=== PATIENT | male | born 1950 ===

== ENCOUNTER 2024-03-06 11:26 | Outpatient (AMB) | payer MEDICARE, SELFPAY ==
--- NOTE | 2024-03-06 11:27 | A.OFFVIS_ITS ---
Vital Signs 03/06/24 11:33 Height 6 ft 4 in Weight 270 lb BMI 32.9 BP 147/70 H Blood Pressure Location Rt brachial Position Sitting Pulse 64 Pulse Source Pulse Oximeter Pulse Oximetry (%) 97 Oxygen Delivery Method Room Air Intake Visit Reasons: Chronic low back pain Intake Note: Pain today 8 Enrollment Eligibility Representative Required: No Accompanied by: Spouse Allergies Sulfa (Sulfonamide Antibiotics) Allergy (Unknown, Verified 03/06/24 11:33) Anaphylaxis HPI HPI Chronic low back pain: Details: Is a pleasant 73-year-old male with prior history of chronic low back and neck pain, diabetes (A1C=7.0), kidney stones and recurrent UTIs, DVT (on Xarelto), former smoker, gout, morbid obesity, thrombocytopenia, bilateral knee replacements, presents today for initial evaluation of lower back pain. Denies any recent or past trauma, injury, or falls. Patient denies previous spine surgery or injections. He completed physical therapy at [facility] about 4 years ago without any improvement. 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 Back pain is localized to the lower spine and worse with movements and extension. Patient reports his pain is most severe mid morning and afternoon which he rates 8/10 and least severe at nighttime which he rates 3/10. Pain affects his daily activities and functioning, mobility, ROM and social interactions. Patient has been using Tylenol Arthritis and Nabumetome with minimal benefit. Denies any fever or chills, abdominal or groin pain, weakness, bladder or bowel dysfunction or saddle anesthesia. Oswestry Low Back Disability Score=23 (moderate disability) Location: Lower back pain Duration: Chronic pain> 10 years Characteristics of symptom or complaint: Aching, stabbing, sharp, pinching, cramping, dull, tiring, sore Aggravating or associated factors: Movements, lifting, prolonged standing and walking, exertion, cold weather Relieving factors: Rest, sitting, heating pad, Tylenol Arthritis Treatment: PT at [facility], uses cane with walking [facility] Medical History (Updated 03/06/24 @ 21:19 by LOGAN Feliciano) Detached retina, left DDD (degenerative disc disease), thoracolumbar Thyroid nodule Recurrent thrombus Recurrent idiopathic thrombophlebitis Pancytopenia Panacinar emphysema Nephrolithiasis Morbid obesity Hypertension Hyperlipidemia Hepatic steatosis Gout DVT (deep venous thrombosis) Diabetes mellitus Cataract Abdominal aortic ectasia Surgical History (Updated 03/06/24 @ 21:19 by LOGAN Feliciano) H/O cornea transplant (~05/09/20) History of carpal tunnel surgery of left wrist (~07/2022) History of left knee surgery (~07/2012) Hx of right knee surgery (~04/2012) Social History Alcohol intake: current Alcohol intake frequency: a few times a month Patient Tobacco Use Status: Former Tobacco user Review of Systems Const All systems reviewed & are unremarkable except as noted in HPI and below Physical Exam Vital Signs: Last Vital Signs Pulse 64 03/06/24 11:33 BP 147/70 H 03/06/24 11:33 Pulse Ox 97 03/06/24 11:33 Oxygen Delivery Method Room Air 03/06/24 11:33 BMI result Body Mass Index 32.9 General: Appears afebrile. Alert and oriented. Mood and affect appropriate. Follows and participates in conversation appropriately. Respiratory effort is unlabored. No cough. Able to transition from sit to stand unassisted. Uses cane with ambulation. Ambulates with bilaterally normal heel strike and toe off. General: Yes no CVA tenderness Back/Spine/Pelvis Other: Limited lumbar ROM due to pain. Painful facet loading bilaterally. Pain in all ranges of motion, lumbar extension and facet loading bilaterally reproduces moderate pain. Lumbar flexion and bending reproduces minimal pain. No midline tenderness to palpation in the thoracic or lumbar spine. Back: no CVA tenderness Cervical Spine: cervical ROM normal, loss of normal cervical lordosis, cervical muscular tenderness, pain with cervical ROM and No Cervical spine tenderness Thoracic/Lumbar Spine: thoracic and lumbar spine normal to inspection, No Thoracic/lumbar spine scar(s), Lasegue's sign negative, straight leg raise negative bilaterally, pain with thoraco-lumbar ROM, paraspinal muscle tenderness, thoraco-lumbar ROM limited, No thoracic spinal tenderness and lumbar spinal tenderness (L3-S1) Pelvis: no buttock tenderness Sacroiliac joints: bilaterally nontender Results Reviewed Results Reviewed: CT ABDOMEN AND PELVIS WITHOUT AND WITH CONTRAST 12/31/22 OSSEOUS STRUCTURES: There is multi-level marked thoracolumbar degenerative disc disease and spondylosis. No acute or aggressive osseous abnormality is seen. Assessment & Plan Assessment & Plan (1) Lumbosacral spondylosis: Code(s): M47.817 - Spondylosis without myelopathy or radiculopathy, lumbosacral region Category: Medical (2) Chronic low back pain: Code(s): M54.50 - Low back pain, unspecified; G89.29 - Other chronic pain Category: Medical (3) DDD (degenerative disc disease), thoracolumbar: Code(s): M51.35 - Other intervertebral disc degeneration, thoracolumbar region Category: Medical Plan Discussed treatment options for patient's axial low back. Informational pamphlets provided to patient and his . We will plan for diagnostic bilateral L3-L4 DR L5 medial branch blocks with local and fluoroscopy. If he has significant relief from the diagnostic blocks for his axial low back pain, will consider either therapeutic injections, Sprint PNS or RFA depending on his preference. All questions and concerns have been answered and patient agreed with the plan. Follow up after injections and sooner as needed. Anticoagulation: Patient on anticoagulation (Xarelto) and instructions given on when to pause with prescribing physician permission. Justification for interventional therapy: ? Patient with average pain > 6/10 ? Patient has exhausted conservative therapy, including PT, NSAIDs, Tylenol Arthritis The risks, consequences, alternatives, and benefits of various treatment options were discussed with the patient in great detail, including conservative management, injections and procedures. Coding Level of Care Code New Pt Level 4 (99166) Complex EM visit Add On G2211 Diagnoses Lumbosacral spondylosis M47.817 Chronic low back pain M54.50; G89.29 DDD (degenerative disc disease), thoracolumbar M51.35
[2024-03-06 11:33] VITALS: BP 147/70; PULSE 64; O2SAT 97; BMI 32.9
== END 2024-03-06 12:15 | disposition home or self-care (01) ==
PROVIDERS: PCP Internal Medicine; Visit Provider Nurse Practitioner Family
DX: M47.817 Spondylosis without myelopathy or radiculopathy, lumbosacral region (principal); M54.50 Low back pain, unspecified; G89.29 Other chronic pain; M51.35 Other intervertebral disc degeneration, thoracolumbar region
CPT/HCPCS: 99204; G2211

== ENCOUNTER → 2024-03-06 11:26 | Outpatient (BNVA) | payer MEDICARE, SELFPAY | PROVIDERS: PCP Internal Medicine; Visit Provider Nurse Practitioner Family | DX: M54.50 Low back pain, unspecified (principal); G89.29 Other chronic pain; M51.35 Other intervertebral disc degeneration, thoracolumbar region; M47.817 Spondylosis without myelopathy or radiculopathy, lumbosacral region | CPT/HCPCS: 99202 ==

== ENCOUNTER 2024-07-04 06:20 | Outpatient (REF) | payer MEDICARE, SELFPAY ==
--- NOTE | ~2024-07-04 | FL_ITS ---
EXAMINATION: FL GUIDANCE ONLY HISTORY: M47.817 - Spondylosis without myelopathy or radiculopathy, lumbosacral r... COMPARISON: None available. TECHNIQUE: Fluoroscopy time: 0.7 minutes. Cumulative Dose: 16.6 mGy. DAP: 0.287 mGym2 Images: 12. FINDINGS: Images demonstrate needles and contrast material in the regions of the bilateral L3-4, L4-5 and L5-S1 facet joints. FL/FL guidance in treatment room IMPRESSION: Fluoroscopy during procedure. Please see procedure report for additional information. Electronically signed by: Nolan Scott MD 07/04/2024 03:59 PM TAMMIE
--- OUTSIDE RECORDS SUMMARY | 2024-07-04 06:25 | XMS_ITS | Encounter Summary ---
Author Organization [facility] Address [address] [place] [id number] Care Team Providers Care Parasitologist Name Role Phone Rehan Marroquin MD Primary Care Provider [phone] Reason for Visit * Reason Comments Follow-up Encounter Details Date Type Department Care Team (Late st Contact Info) Description 06/22/2024 10:00 AM EST Office Visit [facility] Hematology Oncology [address] [place] [address] Alon Feliz MD [address] [place] [address] Pancytopenia (CMS/HCC) (Primary Dx) Social History Tobacco Use Types Packs/Day Years Used Date Smoking Tobacco: Former Cigarettes 3 29 0 05/31/1969 - 05/31/1998 Smokeless Tobacco: Never Alcohol Use Standard Drinks/Week Comments Yes 12 (1 standard drink = 0.6 oz pu re alcohol) Sex and Gender Information Value Date Recorded Sex Assigned at Not on file Gender Identity Not on file Sexual Orientation Not on file Job Start Date Occupation Industry Not on file Not on file Not on file documented as of this encounter Last Filed Vital Signs Vital Sign Reading Time Taken Comments Blood Pressure 173/74 06/22/2024 10:19 AM EST Pulse 77 06/22/2024 10:19 AM EST Temperature 36.6 ??C (97.9 ??F) 06/22/2024 10:[address] Respiratory Rate - - Oxygen Saturation 98% 06/22/2024 10:19 AM EST Inhaled Oxygen Concentration - - Weight 126 kg (277 lb) 06/22/2024 10:19 AM EST Height - - Body Mass Index 33.72 12/21/2023 10:08 AM EDT documented in this encounter Progress Notes * Alon Feliz MD - 06/22/2024 10:00 AM EST Diagnosis/treatment: #1 Pancytopenia. #2 Recurrent DVT. Interval history: The patient is a 73-year-old gentleman who is followed in our clinic for a chronic pancytopenia. A CBC on 12/11/2017 showed a WBC of 4.0, hemoglobin 14.2 with MCV 93, and platelet count 110,000. Additional laboratory data is as below: LABS: A CBC on 12/05/2021 showed WBC of 4.2 with ANC 2.2 and ALC 1.2, hemoglobin 13.0 with MCV 94, and platelet count 122,000. A creatinine was 1.1. LFTs were normal. A CBC on 12/03/2022 showed WBC of 3.8 with ANC 1.9 and ALC 1.2, hemoglobin 12.3 with MCV 96, and platelet count 112,000. A CBC on 06/06/2023 showed WBC of 3.9 with ANC 2.0 and ALC 1.2, hemoglobin 12.5 with MCV 95, and platelet count 123,000. A CBC on 12/17/2023 showed WBC of 3.5 with ANC 1.8 and ALC 1.1, hemoglobin 12.0 with MCV 96, and platelet count 113,000. A CBC on 06/22/2024 showed WBC of 4.0 with ANC 2.3 and ALC 1.1, hemoglobin 11.5 with MCV 97, and platelet count 121,000. The patient presented in early 04/2020 with left leg pain and edema. A left lower extremity Dopplerultrasound 05/03/2020 showed a DVT in the superficial femoral, popliteal, and peroneal veins. He denied any antecedent trauma, surgery, or periods of immobilization. He was started on Xarelto and reported resolution of symptoms. However, he reports that he received only a starter pack and following completion of the starter pack he remained off anticoagulation subsequently. He presented in mid-05/2021 with left leg pain and edema. Left lower extremity Doppler ultrasound on06/12/2021 showed a DVT in the left peroneal veins. He again denied any antecedent provoking factors. He was restarted on Xarelto. He reported resolution of symptoms. He remained on Xarelto 20 mg daily. A cardiolipin antibody panel on 07/10/2021 was negative. A beta-2 glycoprotein antibody panel was negative. An A/P CT with IV and without oral contrast on 11/13/2020 showed a 0.7 cm left lower lobe nodule andwas otherwise unremarkable. An A/P CT with IV and oral contrast on 12/11/2021 showed a 0.8 cm left lower lobe nodule and a 0.6 cm right middle lobe subpleural nodule and was otherwise unremarkable. A chest CT without contrast on 12/03/2022 showed stable pulmonary nodules. He developed intermittent gross hematuria in the summer 2022. A cystoscopy was unremarkable. He reported persistent intermittent gross hematuria. His PCP lowered the Xarelto to 20 mg every other day and the hematuria resolved. He denies leg pain or edema. He denies cough, hemoptysis, or dyspnea on exertion. He denies headaches or visual changes. He denies nausea or abdominal pain. He denies unusual bone pain. He reports stable appetite and weight. He denies any family history of thrombosis in his first-degree relatives. He is a former smoker who started smoking at age 19 and smoked up to 3 packs a day and quit at age 38. Review of systems: The remainder of a 10 point review of systems was unremarkable. Physical examination: HEENT: Sclerae anicteric, normal oropharyngeal membrane. Neck: No lymphadenopathy. Lungs: Clear to auscultation. Heart: No murmurs. Abdomen: Soft, nontender, no organomegaly or masses. Extremities: No edema. Skin: No rash. Neurologic: Normal gait. Assessment/plan: The patient is a 73-year-old gentleman who is followed in our clinic for a chronic mild pancytopenia and a history of recurrent left lower extremity DVT. A/P CTs in 11/17/2020 and 12/17/2021 showed no splenomegaly and no evidence of intra-abdominal malignancy. An early myelodysplastic syndrome is in the differential diagnosis. Because of the cytopenias are mild and stable and no therapeutic intervention is required, we will defer a bone marrow aspirate andbiopsy until there are progressive cytopenias. Small subcentimeter pulmonary nodules were seen on the 11/17/2020 and 12/17/[address] in early set 11/2022 showed stable findings. He completed [address] surveillance of the pulmonary nodules. He is a former smoker quit over 30 years ago. He is not eligible for low-dose chest CT screening. The patient has a history of recurrent unprovoked DVTs. A limited thrombophilia laboratory evaluation with a cardiolipin antibody panel and a beta-2 glycoprotein antibody panel were negative. There is no family history of thrombosis. Further thrombophilia laboratory evaluation is not warranted. I re commended lifetime anticoagulation. He developed intermittent gross hematuria in the summer 2022. A cystoscopy was unremarkable. He is followed by Dr. Escoto. He reported persistent intermittent gross hematuria. His PCP lowered the Xarelto to 20 mg every other day and the hematuria resolved. Visit summary: The patient is a 73-year-old gentleman returns for routine follow-up for his history of chronic mild pancytopenia and history of recurrent left lower extremity DVT. A CBC today shows stable cytopenias. He had gross hematuria on anticoagulation. His PCP lowered the Xarelto to 20 mg every other day and the hematuria resolved during the last interval. A history and physical today revealed no new findings. documented in this encounter Plan of Treatment Upcoming Encounters Date Type Department Care Team (Late st Contact Info) Description 12/20/2024 10:00 AM EDT Office Visit [facility] Hematology Oncology [address] [place] [phone] Alon Feliz MD [address] [place] [phone] Scheduled Orders Name Type Priority Associated Diagnoses Orde r Schedule CBC and differential Lab Routine Pancytopenia (CMS/HCC) Every 12 weeks for 4 Occurrences starting 06/22/2024 until 06/22/2025, 1 completed documented as of this encounter Visit Diagnoses Diagnosis Pancytopenia (CMS/HCC)- Primary documented in this encounter Care Teams Parasitologist Relationship Specialty Start Date End Date Rehan Marroquin MD [address] PCP - General Substance Addiction Coordinator 03/04/20 documented as of this encounter
--- OUTSIDE RECORDS SUMMARY | 2024-07-04 06:25 | XMS_ITS | Clinical Summary ---
Author Organization [facility] Address [address] [place] [address] Phone Care Team Providers Care Waiter/Waitress Counter Name Role Phone Rehan Marroquin MD Primary Care Provider [phone] Allergies Active Allergy Reactions Criticality Noted Date Comments Sulfa (Sulfonamide Antibiotics) 03/01 Medications Medication Sig Dispensed Refills Start Date End Date Status carboxymethylcellulo se-glycern 0.5-0.9 % drops Administer into affected eye(s). Active atorvastatin (LIPITOR) 40 mg tablet Take 1 tablet (40 mg total) by mouth 1 (one) time each day. Active brimonidine (ALPHAGAN P) 0.15 % ophthalmic solution Administer 2 drops into both eyes 3 (three) times a day. Active cholecalciferol (VITAMIN D-3) 50 mcg (2,000 unit) tablet Take 1 tablet (2,000 Units total) by mouth 1 (one) time each day. Active FLUOROMETHOLONE OPHT Administer 2 drops into affected eye(s) 1 (one) time each day. Active glipiZIDE (GLUCOTROL) 10 mg tablet Take 1 tablet (10 mg total) by mouth 2 (two) times a day before meals. before breakfast and dinner. Active bqstekwh-dvt-qnorj-h yaluron ac 069-90-500-1 mg tablet Take by mouth 2 (two) times a day. Active indapamide (LOZOL) 2.5 mg tablet Take 1 tablet (2.5 mg total) by mouth 1 (one) time each day in the morning. Active lisinopriL (PRINIVIL,ZESTRIL) 20 mg tablet Take 1 tablet (20 mg total) by mouth 1 (one) time each day. Active loteprednol (ALREX) 0.2 % ophthalmic suspension 1 drop 4 (four) times a day. Active metFORMIN (GLUCOPHAGE) 500 mg tablet Take 1 tablet (500 mg total) by mouth 2 (two) times a day with meals. Active nabumetone (RELAFEN) 750 mg tablet Take 1 tablet (750 mg total) by mouth 2 (two) times a day. Active olopatadine 0.7 % drops Administer 1 drop into affected eye(s) 1 (one) time each day. Active omega-3 (FISH OIL) 360-1,200 mg capsule Take 1 capsule (1,200 mg total) by mouth every other day. Active potassium gluconate 550 mg (90 mg) tablet Take 550 mg by mouth 1 (one) time each day. Active rivaroxaban (XARELTO) 20 mg tablet Take 1 tablet (20 mg total) by mouth. Active tamsulosin (FLOMAX) 0.4 mg 24 hr capsule Take 1 capsule (0.4 mg total) by mouth 1 (one) time each day. Active timolol (TIMOPTIC) 0.5 % ophthalmic solution 1 drop 2 (two) times a day. Active Active Problems Problem Noted Date Diagnosed Date Acute deep vein thrombosis ( DVT) of tibial vein of left lower extremity 08/23/2021 Nephrolithiasis 01/06/2021 Diabetes mellitus 03/29/2020 Hepatic steatosis 03/29/2020 Hypertension 03/29/2020 Pancytopenia 03/29/2020 Thyroid nodule 03/29/2020 Encounters Date Type Department Care Team Description 06/22/2024 10:00 AM EST Office Visit [facility] Hematology Oncology [address] [place] [address] Alon Feliz MD Pancytopenia (CMS/HCC) (Primary Dx) from Last 3 Months Surgical History Surgery Date Site/Laterality Comments COLONOSCOPY PROCEDURE:COLONOSCOPY CATARACT EXTRACTION, BILATERAL PROCEDURE:CATARACT EXTRACTION, BILATERAL TOTAL KNEE ARTHROPLASTY PROCEDURE:REPLACEMENT TOTAL KNEE BILATERAL OTHER SURGICAL HISTORY PROCEDURE:Retinopexy Medical History Medical History Date Comments Thrombocytopenia (CMS/HCC) DX:Th rombocytopenia (HCC) HLD (hyperlipidemia) DX:HLD (hyp erlipidemia) Hypertension DX:Hypertension Diabetes mellitus (CMS/HCC) DX:D iabetes mellitus (HCC) Abdominal aortic ectasia (CMS/HCC) DX:Abdominal aortic ectasia (HCC) Hepatic steatosis DX:Hepatic raquel atosis Nephrolithiasis DX:Nephrolithias is Thyroid nodule DX:Thyroid nodul e Deep vein thrombosis (DVT) o f proximal vein of left lower extremity (CMS/HCC) 05/03/2020 DX:Deep vein th rombosis (DVT) of proximal vein of left lower extremity (HCC);COMMENT:Apparently unprovoked. Follow-up venous ultrasound 08/07/2020 shows no thrombosis. Acute deep vein thrombosis ( DVT) of tibial vein of left lower extremity (CMS/HCC) 06/12/2021 DX:Acute deep vein thrombosi s (DVT) of tibial vein of left lower extremity (HCC);COMMENT:Apparently unprovoked Family History Medical History Relation Name Comments Stroke Father Dementia Mother Leukemia Neg Hx Relation Name Status Comments Father (Age 74) Mother (Age 94) Social History Tobacco Use Types Packs/Day Years [...] file Not on file Not on file Obstetrics History Last Filed Vital Signs Vital Sign Reading Time Taken Comments Blood Pressure 173/74 06/22/2024 10:19 AM EST Pulse 77 06/22/2024 10:19 AM EST Temperature 36.6 ??C (97.9 ??F) 06/22/2024 10:[address] Respiratory Rate - - Oxygen Saturation 98% 06/22/2024 10:19 AM EST Inhaled Oxygen Concentration - - Weight 126 kg (277 lb) 06/22/2024 10:19 AM EST Height 193 cm (6' 4 ) 12/21/2023 10:08 AM EDT Body Mass Index 33.72 12/21/2023 10:08 AM EDT Plan of Treatment Upcoming Encounters Date Type Department Care Team (Late st Contact Info) Description 12/20/2024 10:00 AM EDT Office Visit [facility] Hematology Oncology [address] [place] [address] Alon Feliz MD [address] [place] [address] Health Maintenance Due Date Last Done Comments Diabetes: Annual Foot Exam 08/01/1961 Diabetes: Annual Retina Eye Exam 08/01/1961 DTaP,Tdap,and Td Vaccines (1 - Tdap) 08/01/1970 Zoster Vaccines (1 of 2) 08/01/2001 RSV Immunization Patients 60+ Years Old (1 - Risk 60-74 years 1-dose series) 2011 Pneumococcal Vaccine: 65+ Years (2 of 2 - PCV) 12/09/2017 12/09/2016 Abdominal Aortic Aneurysm (AAA) Screen 05/08/2022 Cholesterol Screening (Lipid Panel) 05/08/2022 Colorectal Cancer Screening: Colonoscopy 05/08/2022 Depression Screening 05/08/2022 Falls Risk Assessment 05/08/2022 Hepatitis C Screening 05/08/2022 Social Influencers of Health Screening 05/08/2022 Diabetes: Annual Urine Albumin-Creatinine Ratio (uACR) 05/30/2022 Diabetes: Blood Sugar Control Test (HGBA1C) 05/30/2022 COVID-19 Vaccine ( season) 2024 Influenza Vaccine (#1) 2024 , 03/18/2022, 02/27/2021, Additional history exists Medicare Annual Wellness Visit 02/18/2024 02/17/2023 Diabetes: Annual GFR (Glomerular Filtration Rate) 09/02/2024 09/03/2023, 09/03/2023 Hypertension/CHF/CAD Annual BMP Blood Test 09/02/2024 09/03/2023, 09/03/2023 HIB Vaccines Aged Out No longer eligi ble based on patient's age to complete this topic HPV Vaccines Aged Out No longer eligi ble based on patient's age to complete this topic Hepatitis A Vaccines Aged Out No long er eligible based on patient's age to complete this topic Hepatitis B Vaccines Aged Out No long er eligible based on patient's age to complete this topic IPV Vaccines Aged Out No longer eligi ble based on patient's age to complete this topic MMR Vaccines Aged Out No longer eligi ble based on patient's age to complete this topic Meningococcal ACWY Vaccine Aged Out N o longer eligible based on patient's age to complete this topic RSV Immunization Patients Under 20 months Aged Out No longer eligible based on patient's age to complete this topic Varicella Vaccines Aged Out No longer eligible based on patient's age to complete this topic Procedures Procedure Name Priority Date/Time Associated Diagnosis Comments CBC WITH AUTO DIFFERENTIAL Routine 06/22/2024 10:36 AM EST Pancytopenia (CMS/HCC) CBC AND DIFFERENTIAL Routine 06/22/2024 10:36 AM EST Pancytopenia (CMS/HCC) ANNUAL BMP BLOOD TEST Routine 09/03/2023 from Last 3 Months or Most Recently Relevant to Health Maintenance Results * (ABNORMAL) CBC auto differential (06/22/2024 10:36 AM EST) WBC 4.0(L) 4.8 - 10.8 K/mcL LAB HEMETOLOGY METHOD 06/22/2024 12:12 PM [facility] RBC 3.50(L) 4.50 - 5.50 M/mcL LAB HEMETOLOGY METHOD 06/22/2024 12:12 PM [facility] Hemoglobin 11.5(L) 13.5 - 17.5 g/dL LAB HEMETOLOGY METHOD 06/22/2024 12:12 PM [facility] Hematocrit 33.4(L) 42.0 - 54.0 % LAB HEMETOLOGY METHOD 06/22/2024 12:12 PM [facility] MCV 96.8 79.0 - 98.0 FL LAB HEMETOLOGY METHOD 06/22/2024 12:12 PM [facility] MCH 33.3(H) 27.0 - 32.0 pcg LAB HEMETOLOGY METHOD 06/22/2024 12:12 PM [facility] MCHC 34.4 32.0 - 37.0 g/dL LAB HEMETOLOGY METHOD 06/22/2024 12:12 PM [facility] RDW 12.9 11.0 - 15.0 % LAB HEMETOLOGY METHOD 06/22/2024 12:12 PM [facility] Platelets 121(L) 130 - 400 K/mcL LAB HEMETOLOGY METHOD 06/22/2024 12:12 PM [facility] MPV 11.1(H) 7.0 - 11.0 FL LAB HEMETOLOGY METHOD 06/22/2024 12:12 PM [facility] NRBC 0.0 <1.0 % LAB HEMETOLOGY METHOD 06/22/2024 12:12 PM [facility] NRBC Absolute 0.00 <0.10 K/mcL LAB HEMETOLOGY METHOD 06/22/2024 12:12 PM [facility] Neutrophils Relative 56.9 % LAB HEMETOLOGY METHOD 06/22/2024 12:12 PM [facility] Lymphocytes Relative 26.6 % LAB HEMETOLOGY METHOD 06/22/2024 12:12 PM [facility] Monocytes Relative 10.6 % LAB HEMETOLOGY METHOD 06/22/2024 12:12 PM [facility] Eosinophils Relative 4.1 % LAB HEMETOLOGY METHOD 06/22/2024 12:12 PM [facility] Basophils Relative 1.5 % LAB HEMETOLOGY METHOD 06/22/2024 12:12 PM [facility] Immature Granulocytes Relative 0.3 % LAB HEMETOLOGY METHOD 06/22/2024 12:12 PM [facility] Neutrophils Absolute 2.25 1.50 - 7.00 K/mcL LAB HEMETOLOGY METHOD 06/22/2024 12:12 PM [facility] Lymphocytes Absolute 1.05 1.00 - 5.00 K/mcL LAB HEMETOLOGY METHOD 06/22/2024 12:12 PM [facility] Monocytes Absolute 0.42 0.20 - 1.00 K/mcL LAB HEMETOLOGY METHOD 06/22/2024 12:12 PM EST [facility] Eosinophils Absolute 0.16 0.00 - 0.50 K/[facility] LAB HEMETOLOGY METHOD 06/22/2024 12:12 PM EST [facility] Basophils Absolute 0.06 0.00 - 0.20 K/mcL LAB HEMETOLOGY METHOD 06/22/2024 12:12 PM EST [facility] Immature Granulocytes Absolute 0.01 0.00 - 0.03 K/[facility] LAB HEMETOLOGY METHOD 06/22/2024 12:12 PM EST [facility] Blood Venous blood specimen / Unknown Venipuncture / Unknown 06/22/2024 10:36 AM EST 06/22/2024 11:38 AM EST Alon Feliz MD LAB BLOOD ORDERABLE S [facility] [address] [place] [address], * Annual BMP Blood Test (09/03/2023) Annual BMP Blood Test abstracted Historical Provider MD VIVIENNE Ocampo from Last 3 Months or Most Recently Relevant to Health Maintenance Care Teams Waiter/Waitress Counter Relationship Specialty Start Date End Date Rehan Marroquin MD [facility] [address] PCP - General Road Repairer 03/04/20
--- OUTSIDE RECORDS SUMMARY | 2024-07-04 06:25 | XMS_ITS | Clinical Summary ---
Author Organization [facility] Address [address] [place] [address] Care Team Providers Care Interior Block Wirer Name Role Phone Rehan Marroquin MD Primary Care Provider [phone] Allergies Active Allergy Reactions Criticality Noted Date Comments Sulfa Antibiotics 03/28/2020 Medications Medication Sig Dispensed Refills Start Date End Date Status glipiZIDE (GLUCOTROL) tablet 10 mg Take 1 tablet (10 mg total) by mouth 2 (two) times a day before breakfast and dinner. 0 Active indapamide (LOZOL) 2.5 MG tablet Take 1 tablet (2.5 mg total) by mouth every morning. 0 Active atorvastatin (LIPITOR) tablet 40 mg Take 1 tablet (40 mg total) by mouth daily. 0 Active lisinopril (PRINIVIL,ZESTRIL) tablet 20 mg Take 1 tablet (20 mg total) by mouth daily. 0 Active metFORMIN (GLUCOPHAGE) tablet 500 mg Take 1 tablet (500 mg total) by mouth 2 (two) times a day with meals. 0 Active nabumetone (RELAFEN) 750 MG tablet Take 1 tablet (750 mg total) by mouth 2 (two) times a day. 0 Active Potassium Gluconate 550 (90 K) MG TABS Take 550 mg by mouth daily. 0 Active Filley-3 Fatty Acids (OMEGA-3 FISH OIL) 1200 MG CAPS Take 1,200 mg by mouth every other day. 0 Active Cholecalciferol (VITAMIN D) 50 MCG (2000 UT) tablet Take 2,000 Units by mouth daily. 0 Active Mxikmm-Vfwdpuwnj-Rbtw uron-MSM (GLUCOSAMINE CHONDROITIN JOINT) TABS Take by mouth 2 (two) times a day. 0 Active FLUOROMETHOLONE OP Apply 2 drops to eye daily. 0 Active brimonidine (ALPHAGAN) 0.15 % ophthalmic solution Place 2 drops into both eyes 3 (three) times a day. 0 Active Olopatadine HCl 0.7 % SOLN Apply 1 drop to eye daily. 0 Active tamsulosin (FLOMAX) 0.4 MG CAPS Take 1 capsule (0.4 mg total) by mouth daily. 0 Active rivaroxaban (XARELTO) 20 MG TABS tablet Take 1 tablet (20 mg total) by mouth. 0 Active timolol (TIMOPTIC) 0.5 % ophthalmic solution 1 drop 2 (two) times a day. 0 Active Carboxymethylcellul-G lycerin (REFRESH RELIEVA OP) Apply to eye. 0 Active loteprednol (LOTEMAX) 0.2 % SUSP 1 drop 4 (four) times a day. 0 Active rivaroxaban (XARELTO) 20 MG TABS tablet Take by mouth. 0 Act leela Active Problems Problem Noted Date Diagnosed Date Acute deep vein thrombosis ( DVT) of tibial vein of left lower extremity 08/23/2021 Nephrolithiasis 01/06/2021 Diabetes mellitus 03/29/2020 Thyroid nodule 03/29/2020 Hypertension 03/29/2020 Hepatic steatosis 03/29/2020 Pancytopenia 03/29/2020 Family History Medical History Relation Name Comments Stroke Father Dementia Mother Leukemia Neg Hx Relation Name Status Comments Father (Age 74) Mother (Age 94) Social History Tobacco Use Types Packs/Day Years Used Date Smoking Tobacco: Former Cigarettes 3 29 1 970 - 1998 Smokeless Tobacco: Never Alcohol Use Standard Drinks/Week Comments Yes 12 (1 standard drink = 0.6 oz pu re alcohol) much more in years past Sex and Gender Information Value Date Recorded Sex Assigned at Not on file Gender Identity Not on file Sexual Orientation Not on file Job Start Date Occupation Industry Not on file Not on file Not on file Last Filed Vital Signs Vital Sign Reading Time Taken Comments Blood Pressure 156/69 12/21/2023 10:08 AM EDT Pulse 67 12/21/2023 10:08 AM EDT Temperature 36.8 ??C (98.2 ??F) 12/21/2023 10:08 AM E DT Respiratory Rate - - Oxygen Saturation 98% 12/21/2023 10:08 AM EDT Inhaled Oxygen Concentration - - Weight 124.7 kg (275 lb) 12/21/2023 10:08 AM EDT Height 193 cm (6' 4 ) 12/21/2023 10:08 AM EDT Body Mass Index 33.47 12/21/2023 10:08 AM EDT Plan of Treatment Health Maintenance Due Date Last Done Comments Hepatitis C Screening 1950 COVID-19 Vaccine (#1) 02[birth year]02/1951 Pneumococcal Vaccine (1 of 2 - PCV) 08/01/1957 Depression Screening 1963 BMI Counseling 08/01/1969 Preventative Health Evaluation 08/01/1969 DTap / Tdap / Td (1 - Tdap) 08/01/1970 Colon Cancer Screening (Colonoscopy) 08/01/1996 Shingrix-Zoster Vaccine (1 of 2) 08/01/2001 Fall Risk Assessment 08/01/2016 Influenza Vaccine (#1) 2024 RSV Adult > 60+ Yrs or Pregn ant (1 - 1-dose 75+ series) 08/01/2026 Hepatitis B Vaccines Aged Out No long er eligible based on patient's age to complete this topic RSV Ped < 20 months Aged Out No longe r eligible based on patient's age to complete this topic Care Teams Interior Block Wirer Relationship Specialty Start Date End Date Rehan Marroquin MD [address] [address] PCP - General Willower 03/04/20
== END 2024-07-04 06:21 | disposition home or self-care (01) ==
LOC: CF 06:20
PROVIDERS: Visit Provider Anesthesiology
DX: M47.817 Spondylosis without myelopathy or radiculopathy, lumbosacral region (principal)
CPT/HCPCS: 64493; 64494; J2003; J2795; Q9967

== ENCOUNTER 2024-07-04 14:07 | Outpatient (AMB) | payer MEDICARE, SELFPAY ==
--- OUTSIDE RECORDS SUMMARY | 2024-07-04 14:15 | XMS_ITS | Encounter Summary ---
Author Organization [facility] Address [address] [place] [phone] Care Team Providers Care Automotive Lube Technician Name Role Phone Rehan Marroquin MD Primary Care Provider [phone] Reason for Visit * Reason Comments Follow-up Encounter Details Date Type Department Care Team (Late st Contact Info) Description 06/22/2024 10:00 AM EST Office Visit [facility] Hematology Oncology [address] [place] [address] Alon Feliz MD [address] [place] [address] Pancytopenia (CMS/HCC) (Primary Dx) Social [...] Description 12/20/2024 10:00 AM EDT Office Visit [facility] Hematology Oncology [address] [place] [phone] Alon Feliz MD [address] [place] [phone] Scheduled Orders Name Type Priority Associated Diagnoses Orde r Schedule CBC and differential Lab Routine Pancytopenia (CMS/HCC) Every 12 weeks for 4 Occurrences starting 06/22/2024 until 06/22/2025, 1 completed documented as of this encounter Visit Diagnoses Diagnosis Pancytopenia (CMS/HCC)- Primary documented in this encounter Care Teams Automotive Lube Technician Relationship Specialty Start Date End Date Rehan Marroquin MD [address] PCP - General Funnel Coater 03/04/20 documented as of this encounter
--- OUTSIDE RECORDS SUMMARY | 2024-07-04 14:15 | XMS_ITS | Clinical Summary ---
Author Organization [facility] Address [address] [place] [address] Phone Care Team Providers Care Carton Stenciler Name Role Phone Rehan Marroquin MD Primary Care Provider [phone] Allergies Active Allergy Reactions Criticality Noted Date [...] before meals. before breakfast and dinner. Active cqslabod-yrn-bgvfm-h yaluron ac [id number] mg tablet Take by mouth 2 (two) [...] Description 06/22/2024 10:00 AM EST Office Visit [facility] Hematology Oncology [address] [place] [address] Alon Feliz MD Pancytopenia (CMS/HCC) (Primary Dx) [...] Description 12/20/2024 10:00 AM EDT Office Visit [facility] Hematology Oncology [address] [place] [address] Alon Feliz MD [address] [place] [address] Health Maintenance Due Date Last [...] K/mcL LAB HEMETOLOGY METHOD 06/22/2024 12:12 PM [facility] RBC 3.50(L) 4.50 - 5.50 M/mcL LAB HEMETOLOGY METHOD 06/22/2024 12:12 PM [facility] Hemoglobin 11.5(L) 13.5 - 17.5 g/dL LAB HEMETOLOGY METHOD 06/22/2024 12:12 PM [facility] Hematocrit 33.4(L) 42.0 - 54.0 % LAB HEMETOLOGY METHOD 06/22/2024 12:12 PM [facility] MCV 96.8 79.0 - 98.0 FL LAB HEMETOLOGY METHOD 06/22/2024 12:12 PM [facility] MCH 33.3(H) 27.0 - 32.0 pcg LAB HEMETOLOGY METHOD 06/22/2024 12:12 PM [facility] MCHC 34.4 32.0 - 37.0 g/dL LAB HEMETOLOGY METHOD 06/22/2024 12:12 PM [facility] RDW 12.9 11.0 - 15.0 % LAB HEMETOLOGY METHOD 06/22/2024 12:12 PM [facility] Platelets 121(L) 130 - 400 K/mcL LAB HEMETOLOGY METHOD 06/22/2024 12:12 PM [facility] MPV 11.1(H) 7.0 - 11.0 FL LAB HEMETOLOGY METHOD 06/22/2024 12:12 PM [facility] NRBC 0.0 <1.0 % LAB HEMETOLOGY METHOD 06/22/2024 12:12 PM [facility] NRBC Absolute 0.00 <0.10 K/mcL LAB HEMETOLOGY METHOD 06/22/2024 12:12 PM [facility] Neutrophils Relative 56.9 % LAB HEMETOLOGY METHOD 06/22/2024 12:12 PM [facility] Lymphocytes Relative 26.6 % LAB HEMETOLOGY METHOD 06/22/2024 12:12 PM [facility] Monocytes Relative 10.6 % LAB HEMETOLOGY METHOD 06/22/2024 12:12 PM [facility] Eosinophils Relative 4.1 % LAB HEMETOLOGY METHOD 06/22/2024 12:12 PM [facility] Basophils Relative 1.5 % LAB HEMETOLOGY METHOD 06/22/2024 12:12 PM [facility] Immature Granulocytes Relative 0.3 % LAB HEMETOLOGY METHOD 06/22/2024 12:12 PM [facility] Neutrophils Absolute 2.25 1.50 - 7.00 K/mcL LAB HEMETOLOGY METHOD 06/22/2024 12:12 PM [facility] Lymphocytes Absolute 1.05 1.00 - 5.00 K/mcL LAB HEMETOLOGY METHOD 06/22/2024 12:12 PM [facility] Monocytes Absolute 0.42 0.20 - 1.00 K/mcL LAB HEMETOLOGY METHOD 06/22/2024 12:12 PM EST [facility] Eosinophils Absolute 0.16 0.00 - 0.50 K/[facility] LAB HEMETOLOGY METHOD 06/22/2024 12:12 PM EST [facility] Basophils Absolute 0.06 0.00 - 0.20 K/mcL LAB HEMETOLOGY METHOD 06/22/2024 12:12 PM EST [facility] Immature Granulocytes Absolute 0.01 0.00 - 0.03 K/[facility] LAB HEMETOLOGY METHOD 06/22/2024 12:12 PM EST [facility] Blood Venous blood specimen / Unknown Venipuncture / Unknown 06/22/2024 10:36 AM EST 06/22/2024 11:38 AM EST Alon Feliz MD LAB BLOOD ORDERABLE S [facility] [address] [place] [address], * Annual BMP Blood Test (09/03/2023) Annual BMP Blood Test abstracted Historical Provider MD VIVIENNE Ocampo from Last 3 Months or Most Recently Relevant to Health Maintenance Care Teams Carton Stenciler Relationship Specialty Start Date End Date Rehan Marroquin MD [facility] [address] PCP - General Ice Cream Server 03/04/20
--- OUTSIDE RECORDS SUMMARY | 2024-07-04 14:15 | XMS_ITS | Clinical Summary ---
Author Organization [facility] Address [address] [place] [address] Care Team Providers Care I O Psychologist Name Role Phone Rehan Marroquin MD Primary Care Provider [phone] Allergies Active Allergy Reactions Criticality Noted Date [...] 550 mg by mouth daily. 0 Active Leblanc-3 Fatty Acids (OMEGA-3 FISH OIL) 1200 MG CAPS Take 1,200 mg by mouth every other day. 0 Active Cholecalciferol (VITAMIN D) 50 MCG (2000 UT) tablet Take 2,000 Units by mouth daily. 0 Active Aemvbj-Lchcxqovr-Mhjd uron-MSM (GLUCOSAMINE CHONDROITIN JOINT) TABS Take by [...] age to complete this topic Care Teams I O Psychologist Relationship Specialty Start Date End Date Rehan Marroquin MD [address] [address] PCP - General Manager Managed Care 03/04/20
[2024-07-04 14:19] VITALS: BP 140/76; PULSE 80; RESP 16; O2SAT 96
--- NOTE | 2024-07-04 14:19 | A.OFFVIS_ITS ---
Vital Signs 07/04/24 14:19 07/04/24 14:59 BP 140/76 H 128/70 Blood Pressure Location Lt brachial Lt brachial Position Sitting Sitting Respiration 16 16 Pulse 80 80 Pulse Source Pulse Oximeter Pulse Oximeter Pulse Oximetry (%) 96 98 Oxygen Delivery Method Room Air Room Air Intake Visit Reasons: BILATERAL DIAGNOSTIC L3, L4, DRL5 MBB Sales Operations Lead Required: No Allergies Sulfa (Sulfonamide Antibiotics) Allergy (Unknown, Verified 07/04/24 14:19) Anaphylaxis Medication List - Last Reconciled 07/04/24 by Allie Sommers LPN atorvastatin (Lipitor) 20 mg PO DAILY cholecalciferol (vitamin D3) 50 mcg PO DAILY glipizide 20 mg PO BID glucosamine HCl 1,500 mg PO DAILY green tea leaf extract 400 mg PO indapamide 2.5 mg PO QAM lisinopril 20 mg PO DAILY metformin 500 mg PO BID nabumetone 750 mg PO BID omega [id number]-fish oil 910-1,400 mg caps PO potassium gluconate 550 mg PO DAILY rivaroxaban (Xarelto) 20 mg PO DAILY tamsulosin 0.4 mg PO BEDTIME timolol 0.5% 1 drp ophthalmic (eye) DAILY [facility] Medical History (Updated 03/06/24 @ 21:19 by LOGAN Feliciano) Detached retina, left DDD (degenerative disc disease), thoracolumbar Thyroid nodule Recurrent thrombus Recurrent idiopathic thrombophlebitis Pancytopenia Panacinar emphysema Nephrolithiasis Morbid obesity Hypertension Hyperlipidemia Hepatic steatosis Gout DVT (deep venous thrombosis) Diabetes mellitus Cataract Abdominal aortic ectasia Surgical History (Updated 03/06/24 @ 21:19 by LOGAN Feliciano) H/O cornea transplant (~05/09/20) History of carpal tunnel surgery of left wrist (~07/2022) History of left knee surgery (~07/2012) Hx of right knee surgery (~04/2012) Social History Alcohol intake: current Alcohol intake frequency: a few times a month Patient Tobacco Use Status: Former Tobacco user Physical Exam Vital Signs: Last Vital Signs Pulse 80 07/04/24 14:59 Resp 16 07/04/24 14:59 BP 128/70 07/04/24 14:59 Pulse Ox 98 07/04/24 14:59 Oxygen Delivery Method Room Air 07/04/24 14:59 Assessment & Plan Assessment & Plan (1) Lumbosacral spondylosis: Code(s): M47.817 - Spondylosis without myelopathy or radiculopathy, lumbosacral region Category: Medical (2) Chronic low back pain: Code(s): M54.50 - Low back pain, unspecified; G89.29 - Other chronic pain Category: Medical Plan Diagnostic bilateral medial branch block L3, L4, dorsal ramus L5. Informed consent was thoroughly explained to the patient before the procedure.? The patient came to the operating room.? He was positioned prone on operating table with a pillow under her abdomen.? Time-out was performed delineating correct site and side of the procedure, nature of the injection, name and date of of the patient. The lower back and upper buttocks of the patient was prepped with ChloraPrep and draped with sterile utility towels.? C-arm was brought over the operating field and the point of interest were delineated as confluence of the superior articular process of L4 vertebra and L5 vertebra bilaterally with corresponding transverse process bilaterally, as well as confluence of the superior articular process of S1 bilaterally with sacral ala. the point of interest projection to the skin was injected with small amount of mixture of lidocaine 2% and ropivacaine 0.5%. After that 22 gauge training 1/2 inch needle was driven 2 point of interest in tunnel vision fashion. When needle gently contacted the bone injection of the contrast was performed delineating no intravascular and no intrathecal spread of the contrast. After that injection of the small amount of ropivacaine 0.5% less than 1 cc into each target site was performed. Upon completion of the injections the needle was removed sterile Band-Aids were applied. The patient tolerated procedure well. He was given a pain diary to complete after the procedure. Orders: Orders FL guidance in treatment room Today M47.817 - Spondylosis without myelopathy or radiculopathy, lumbosacral region Coding Level of Care Code Procedure Only Diagnoses Lumbosacral spondylosis M47.817 Chronic low back pain M54.50; G89.29
[2024-07-04 14:59] VITALS: BP 128/70; PULSE 80; RESP 16; O2SAT 98
== END 2024-07-04 15:01 | disposition home or self-care (01) ==
LOC: HO.PMCPRC 14:07
PROVIDERS: PCP Internal Medicine; Visit Provider Anesthesiology
DX: M47.817 Spondylosis without myelopathy or radiculopathy, lumbosacral region (principal); M54.50 Low back pain, unspecified; G89.29 Other chronic pain
CPT/HCPCS: 64493; 64494

== ENCOUNTER 2024-07-11 12:46 | Outpatient (AMB) | payer MEDICARE, SELFPAY ==
--- NOTE | 2024-07-11 12:55 | MHC.OFFVIS ---
Vital Signs 07/11/24 12:59 Height 6 ft 4 in Weight 275 lb BMI 33.5 BP 148/65 H Blood Pressure Location Rt brachial Position Sitting Pulse 67 Pulse Source Pulse Oximeter Pulse Oximetry (%) 95 Oxygen Delivery Method Room Air Intake Visit Reasons: BILATERAL DIAGNOSTIC L3, L4, DRL5 MBB Intake Note: Pain today 2/10 Cosmetic Sales Assistant Required: No Accompanied by: Spouse Allergies Sulfa (Sulfonamide Antibiotics) Allergy (Unknown, Verified 07/11/24 12:59) Anaphylaxis HPI Comments Details: Patient presents today to assess response to Bilateral Diagnostic L3-L4 DR L5 MBB on 07/04/[address] Oleary. Patient reports 100% for pain relief for initial 5 hours since procedure and ongoing 80% pain relief with significant increase in his activity levels, better functioning, sleep and improved mobility. Patient reports pain at 2/10 and with rest at 0/10. He reports pain increased to 4/10 with recent snow shoveling with recent snow storm. He reports standing more upright and for a longer time at the kitchen counter and able to tolerate longer distance when walking his dog. Patient reports his axial low back pain remains low and he is aware diagnostic injections are not meant for a sustained pain relief. He is interested in lumbar medial branch RFA for a longer pain relief. We also reviewed Sprint PNS trial and therapeutic injections. Denies any recent cough, cold, infection, fever or any significant changes in medical history since last office visit. Past Procedures: 07/04/24: Bilateral Diagnostic L3-L4 DR L5 MBB-100% pain relief for 5 hours, ongoing 80% pain relief for >1 week PRIOR: Is a pleasant 73-year-old male with prior history of chronic low back and neck pain, diabetes (A1C=7.0), kidney stones and recurrent UTIs, DVT (on Xarelto), former smoker, gout, morbid obesity, thrombocytopenia, bilateral knee replacements, presents today for initial evaluation of lower back pain. Denies any recent or past trauma, injury, or falls. Patient denies previous spine surgery or injections. He completed physical therapy at [facility] about 4 years ago without any improvement. 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 Back pain is localized to the lower spine and worse with movements and extension. Patient reports his pain is most severe mid morning and afternoon which he rates 8/10 and least severe at nighttime which he rates 3/10. Pain affects his daily activities and functioning, mobility, ROM and social interactions. Patient has been using Tylenol Arthritis and Nabumetome with minimal benefit. Denies any fever or chills, abdominal or groin pain, weakness, bladder or bowel dysfunction or saddle anesthesia. Oswestry Low Back Disability Score=23 (moderate disability) Location: Lower back pain Duration: Chronic pain> 10 years Characteristics of symptom or complaint: Aching, stabbing, sharp, pinching, cramping, dull, tiring, sore Aggravating or associated factors: Movements, lifting, prolonged standing and walking, exertion, cold weather Relieving factors: Rest, sitting, heating pad, Tylenol Arthritis Treatment: PT at [facility], uses cane with walking [facility] Medical History Detached retina, left DDD (degenerative disc disease), thoracolumbar Thyroid nodule Recurrent thrombus Recurrent idiopathic thrombophlebitis Pancytopenia Panacinar emphysema Nephrolithiasis Morbid obesity Hypertension Hyperlipidemia Hepatic steatosis Gout DVT (deep venous thrombosis) Diabetes mellitus Cataract Abdominal aortic ectasia Surgical History H/O cornea transplant (~05/09/20) History of carpal tunnel surgery of left wrist (~07/2022) History of left knee surgery (~07/2012) Hx of right knee surgery (~04/2012) Social History Alcohol intake: current Alcohol intake frequency: a few times a month Patient Tobacco Use Status: Former Tobacco user Review of Systems Const All systems reviewed & are unremarkable except as noted in HPI and below Physical Exam Vital Signs: Last Vital Signs Pulse 67 07/11/24 12:59 BP 148/65 H 07/11/24 12:59 Pulse Ox 95 07/11/24 12:59 Oxygen Delivery Method Room Air 07/11/24 12:59 BMI result Body Mass Index 33.5 General: Appears afebrile. Alert and oriented. Mood and affect appropriate. Follows and participates in conversation appropriately. Respiratory effort is unlabored. No cough. Able to transition from sit to stand unassisted. Uses cane with ambulation. Ambulates with bilaterally normal heel strike and toe off. General: Yes no CVA tenderness Back/Spine/Pelvis Other: Limited lumbar ROM due to pain. No pain with facet loading bilaterally. Lumbar extension, flexion and bending reproduces minimal pain. No midline tenderness to palpation in the thoracic or lumbar spine. Back: no CVA tenderness Cervical Spine: cervical ROM normal, loss of normal cervical lordosis, cervical muscular tenderness, pain with cervical ROM and No Cervical spine tenderness Thoracic/Lumbar Spine: thoracic and lumbar spine normal to inspection, No Thoracic/lumbar spine scar(s), Lasegue's sign negative, straight leg raise negative bilaterally, pain with thoraco-lumbar ROM, paraspinal muscle tenderness, thoraco-lumbar ROM limited, No thoracic spinal tenderness and lumbar spinal tenderness (L3-S1) Sacroiliac joints: bilaterally nontender Results Reviewed Results Reviewed: CT ABDOMEN AND PELVIS WITHOUT AND WITH CONTRAST 12/31/22 OSSEOUS STRUCTURES: There is multi-level marked thoracolumbar degenerative disc disease and spondylosis. No acute or aggressive osseous abnormality is seen. Assessment & Plan Assessment & Plan (1) Lumbosacral spondylosis: Code(s): M47.817 - Spondylosis without myelopathy or radiculopathy, lumbosacral region Category: Medical (2) Chronic low back pain: Code(s): M54.50 - Low back pain, unspecified; G89.29 - Other chronic pain Category: Medical (3) DDD (degenerative disc disease), thoracolumbar: Code(s): M51.35 - Other intervertebral disc degeneration, thoracolumbar region Category: Medical Plan Patient is over 1 week status post bilateral diagnostic lumbar medial branch blocks with ongoing 80% pain relief. He is interested to proceed with Bilateral L3-L4 DR L5 Medial Branch RFA with light sedation and fluoroscopy as next steps. We also reviewed therapeutic injections and Sprint PNS trial. All questions and concerns have been answered and patient agreed with the plan. Follow up after lumbar RFA and sooner as needed. Anticoagulation: Patient on anticoagulation (Xarelto) and instructions given on when to pause with prescribing physician permission. Justification for interventional therapy: ? Patient with average pain > 6/10 ? Patient has exhausted conservative therapy, including PT, NSAIDs, Tylenol Arthritis ? Bilateral Diagnostic L3-L4 DR L5 MBB-100% pain relief for 5 hours, ongoing 80% pain relief >1 week The risks, consequences, alternatives, and benefits of various treatment options were discussed with the patient in great detail, including conservative management, injections and procedures. Coding Level of Care Code Est Pt Level 3 (91275) Complex EM visit Add On G2211 Diagnoses Lumbosacral spondylosis M47.817 Chronic low back pain M54.50; G89.29 DDD (degenerative disc disease), thoracolumbar M51.35
[2024-07-11 12:59] VITALS: BP 148/65; PULSE 67; O2SAT 95; BMI 33.5
== END 2024-07-11 13:16 | disposition home or self-care (01) ==
PROVIDERS: PCP Internal Medicine; Visit Provider Nurse Practitioner Family
DX: M47.817 Spondylosis without myelopathy or radiculopathy, lumbosacral region (principal); M54.50 Low back pain, unspecified; G89.29 Other chronic pain; M51.35 Other intervertebral disc degeneration, thoracolumbar region
CPT/HCPCS: 99213; G2211

== ENCOUNTER → 2024-07-11 12:46 | Outpatient (BNVA) | payer MEDICARE, SELFPAY | PROVIDERS: PCP Internal Medicine; Visit Provider Nurse Practitioner Family | DX: M47.817 Spondylosis without myelopathy or radiculopathy, lumbosacral region (principal); M54.50 Low back pain, unspecified; M51.35 Other intervertebral disc degeneration, thoracolumbar region; G89.29 Other chronic pain | CPT/HCPCS: 99212 ==